=== PATIENT | female | born 1965 | race Caucasian/White ===

== ENCOUNTER 2020-03-24 10:24 | Emergency (ER) | payer BC, SELFPAY ==
[2020-03-24] VITALS (42 sets, daily range): BP systolic 113–151; BP diastolic 66–97; PULSE 58–88; RESP 13–22; TEMP 36.8–37; O2SAT 81–100
--- NOTE | 2020-03-24 11:02 | ED.GENADUL_ITS ---
Discharge Plan Disposition Patient Disposition: HOME Condition: Stable Discharge Details Chief Complaint: RespSymp Clinical Impression: Chronic dyspnea Primary Care Provider: Ruthie Anna ED Provider: Bernadine Michel Home Meds and New Rx's Prescriptions: New albuterol sulfate 90 mcg/actuation HFA aerosol inhaler 2 puff IH Q4H PRN (Reason: shortness of breath or wheezing) Qty: 8 RF: 0 No Action prednisone 5 mg Tablet 5 mg PO DAILY RF: 0 loratadine 10 mg Tablet 10 mg PO DAILY PRNRF: 0 valsartan-hydrochlorothiazide 320-25 mg Tablet 1 tab PO DAILY RF: 0 Discharge Instructions Instructions: Dyspnea (ED) Additional Instructions: Follow up with primary care provider in 3-5 days. Return to ED sooner if any worsening or concerns. Increase oral fluids. Insert Tylenol if any worsening chest pressure, shortness of breath, return to the ED. Could be a little bit of anxiety. Stand Alone Forms: PENDING COVID-19 TESTING Referrals: Ruthie Anna [Primary Care Provider] - Discharge Data Discharge Date/Time-TO BE ENTERED AT DEPARTURE: 03/24/20 16:11 Medical Decision Making 54-year-old female presents with chronic chest heaviness and shortness of breath which is been worse over the last month and today. She reports constant today. Associated with dry cough and dyspnea. States she feels like she has to cough in order to catch her breath. She does have a history of rheumatoid arthritis and takes prednisone 5 mg daily, she describes pain as heaviness. No radiation, no rash no seizure no weakness. She is alert and oriented x4. Initial work-up includes cardiac work-up and handheld albuterol inhaler, chest x-ray, CBC, CMP troponin magnesium. EXAM: XR PORTABLE CHEST AP CLINICAL HISTORY: Chest pressure shortness of breath. TECHNIQUE: 2D digital imaging was performed. COMPARISON: No exams were available for comparison FINDINGS: LUNGS: Clear. No pleural abnormality seen. HEART: Normal. MEDIASTINUM: Normal. OTHER FINDINGS: None. IMPRESSION: No acute pulmonary findings. Differential diagnosis includes but not limited to coronary artery disease, URI, pneumonia, seasonal allergies, anxiety. 1521: patient reevaluation, patient is alert oriented in no acute distress on monitor second troponin pending at this time. Patient is requesting to leave, but disposition is discharged home with albuterol inhaler. Strict return instructions given, verbalized understanding. 1415: Did obtain second troponin prior to patient discharge which was within normal limits patient discharged home, ambulatory prescription given for albuterol inhaler. Strict return instructions given, verbalized understanding. This text was generated using [employer] system, please disregard any oddities of phrase or misspellings. Medical Records Medical records reviewed: Yes I reviewed the patient's medical records. Lab Data Lab results reviewed: Yes I reviewed the patient's lab results. HPI General Mode of arrival: ambulatory . Date/Time Provider Initiated Documentation: 03/24/20 10:31 . Limitations to Documentation: no limitations . Information obtained by: patient . HPI Narrative: 54-year-old female presents with chronic chest heaviness and shortness of breath which is been worse over the last month and today. She reports constant today. Associated with dry cough and dyspnea. States she feels like she has to cough in order to catch her breath. She does have a history of rheumatoid arthritis and takes prednisone 5 mg daily, she describes pain as heaviness. No radiation, no rash no seizure no weakness. She is alert and oriented x4. Related Data Home Medications Medication Instructions Recorded Confirmed albuterol sulfate 2 puff IH Q4H PRN #8 gm 03/24/20 loratadine 10 mg PO DAILY PRN 03/24/20 03/24/20 prednisone 5 mg PO DAILY 03/24/20 03/24/20 valsartan-hydrochlorothiazide 1 tab PO DAILY 03/24/20 03/24/20 Previous Rx's Medication Instructions Recorded albuterol sulfate 2 puff IH Q4H PRN #8 gm 03/24/20 Allergies Allergy/AdvReac Type Severity Reaction Status Date / Time bee venom protein (honey bee) Allergy Severe Anaphylaxsi Unverified 03/24/20 10:56 s Sulfa (Sulfonamide Allergy Intermediate Hives Unverified 03/24/20 10:56 Antibiotics) General Stated Complaint: RespSymp REAL: 3 Review of Systems Narrative: Constitutional: Negative for weight loss, alert and oriented, well groomed, normal body habitus, appears comfortable. HEENT: Denies trauma, headaches, blurry vision, nasal discharge, sore throat, trouble swallowing. Chest: Denies positive chest heaviness palpitations, irregular rhythm, hypertension. Respiratory: Positive shortness of breath, dry cough, denies hemoptysis. GI: Denies abdominal pain, nausea, vomiting, diarrhea, constipation. : Denies dysuria, hematuria, flank pain, rectal bleeding. Neuro: Denies dizziness, blurry vision, weakness, syncope, headache or facial numbness. Hematologic: Denies easy bruising, intolerance to heat or cold, hair loss. Does have a history of rheumatoid arthritis All systems reviewed & are unremarkable except as noted in HPI and below [facility] Social History Smoking/Tobacco Use Status: Never Alcohol Intake: current Alcohol Intake frequency: holidays/special occasions only Drug use: Never Substance use type: does not use Do you feel safe at home: Yes Do you feel safe in your relationship?: Yes Exam Narrative Exam Narrative: Constitutional: Alert and oriented x3. Appears stated age. Normal body habitus. Head: Normocephalic, no trauma. Eyes: Pupils PERRLA, Red reflex noted, EOM's intact. Eyelids symmetrical without lesions, discharge, or swelling. ENT: Bilateral TM's WNL, External ear normal to inspection, no mastoid TTP, swelling, or erythema, Nasal turbinates WNL, no nasal discharge. Normal dentition, Posterior pharynx slightly erythemic, no exudate. Chest: RRR, Normal S1, S2, distal pulses intact. Resp: Lungs slightly diminished to auscultation bilaterally, no wheezes, rales, or rhonchi. Abdomen: Normal to inspection, soft, nontender to palpation, Musculoskeletal: Normal gait, 5/5 strength to all four extremities. Skin: No suspicious rashes or lesions. Capillary refill less than 2 sec. no lower extremity edema. Neurologic: Cranial nerves II-XII intact. Alert and oriented x 3. DTR's intact. Hematologic/Lymphatic: No ecchymosis, no lymphadenopathy. Course Vital Signs Vital signs: Vital Signs Temperature 37 C 03/24/20 10:30 Pulse 86 03/24/20 10:30 Respiratory Rate 18 03/24/20 10:30 Blood Pressure 135/97 H 03/24/20 10:30 Pulse Oximetry 98 03/24/20 10:30 Temperature 37 C 03/24/20 10:30 Temperature Source Temporal Artery Scan 03/24/20 10:30 Pulse 86 06/05/20 10:30 Respiratory Rate 18 03/24/20 10:30 Respiratory Effort 03/24/20 10:39 Respiratory Depth Normal 03/24/20 10:39 Blood Pressure 135/97 H 03/24/20 10:30 Blood Pressure Position Sitting 03/24/20 10:30 Pulse Oximetry 98 03/24/20 10:30 Oxygen Delivery Method Room Air 03/24/20 10:30 Oxygen Flow Rate 0 03/24/20 10:30 Pain Level 6 03/24/20 10:30
[2020-03-24 11:22] LABS: Abs Immature Grans 0.01 k/cumm (0.0-0.09); Absolute Basophil Count 0.04 k/cumm (0.0-0.2); Absolute Eosinophil Count 0.13 k/cumm (0.0-0.7); Absolute Lymphocyte Count 1.47 k/cumm (1.2-3.4); Absolute Neutrophil Count 4.45 k/cumm (1.2-6.7); Basophils % 0.6; Eosinophils % 1.9; HCT 42.5 % (36.0-46.0); HGB 14.1 g/dL (12.0-15.5); Immature Grans % 0.1 %; Lymphocytes % 21.6; Mean Corp. HGB Concentration 33.2 g/dL (32.0-36.0); Mean Corpuscular Hemoglobin 30.9 pg (27.0-33.0); Mean Platelet Volume 10.2 fL (8.0-11.0); Monocytes % 10.3; Neutrophils % 65.5; Platelet Count 329 x1000/uL (130-400); RBC 4.57 m/cumm (4.00-5.20); RBC Distribution Width 12.6 % (11.7-14.6)
[2020-03-24 11:32] LABS: ALT 30 U/L (14-59); AST 22 U/L (15-37); Albumin 3.8 g/dL (3.4-5.0); Alkaline Phosphatase 76 U/L (46-116); Anion Gap 8.5 mmol/L (3-11); BUN 14 mg/dL (7-18); Bilirubin, Total 0.5 mg/dL (0.2-1.0); CO2 25.5 mmol/L (21.0-32.0); CREATININE 0.87 mg/dL (0.55-1.02); Calcium 8.8 mg/dL (8.5-10.1); Chloride 103 mmol/L (98-107); Glucose 93 mg/dL (74-106); Potassium 3.6 mmol/L (3.5-5.1); Sodium 137 mmol/L (136-145); Total Protein 7.7 g/dL (6.4-8.2)
[2020-03-24 11:50] LABS: D-Dimer 451 ng/mlFEU (<500)
[2020-03-24 11:57] LABS: Magnesium 2.3 mg/dL (1.8-2.4); Troponin I < 0.05 ng/mL (<0.06)
[2020-03-24] MEDS: Albuterol HFA 8 GM 60 PUFF INH IH (12:29)
[2020-03-24] MEDS: Normal Saline 1,000 ML 1000 ML IV (12:32)
--- NOTE | 2020-03-24 12:45 | DI.RAD_ITS ---
EXAM: XR PORTABLE CHEST AP CLINICAL HISTORY: Chest pressure shortness of breath. TECHNIQUE: 2D digital imaging was performed. COMPARISON: No exams were available for comparison FINDINGS: LUNGS: Clear. No pleural abnormality seen. HEART: Normal. MEDIASTINUM: Normal. OTHER FINDINGS: None. IMPRESSION: No acute pulmonary findings. DATA REPOSITORY: RADIATION DOSE DELIVERED:
[2020-03-24 15:50] LABS: Troponin I < 0.05 ng/mL (<0.06)
[2020-03-25 21:43] LABS: COVID-19 RT-PCR UVMMC Result Negative (Negative)
== END 2020-03-24 16:11 | disposition home or self-care (01) ==
PROVIDERS: Emergency Provider Registered Nurse Emergency; PCP Nurse Practitioner
DX: R06.00 Dyspnea, unspecified (principal); R07.89 Other chest pain; G89.29 Other chronic pain
CPT/HCPCS: 36415; 80053; 93005; 96360; 99285; U0003; 71045; 83735; 84484; 85025; 85379; 93010; 99284

== ENCOUNTER 2022-08-06 14:10 | Outpatient (REF) | payer BC, SELFPAY ==
[2022-08-06 15:02] LABS: Abs Immature Grans 0.03 10^3/uL (0.0-0.06); Absolute Lymphocyte Count 1.89 10^3/uL (1.2-3.4); Absolute Neutrophil Count 6.23 10^3/uL (1.2-6.7); Basophils % 1.1; Eosinophils % 2.1; HCT 45.1 % (36.0-46.0); HGB 15.1 g/dL (11.2-15.7); Immature Grans % 0.3; Lymphocytes % 20.2; MCH 30.4 pg (27.0-33.0); MCHC 33.5 % (32.0-36.0); MCV 91 fL (80-95); MPV 10.2 fL (8.0-11.0); Monocytes % 9.6; Neutrophils % 66.7; Platelet Count 334 10^3/uL (130-400); RBC 4.97 10^6/uL (3.93-5.22); RDW 12.5 % (11.7-14.6); RDW-SD 41.2 fL; WBC 9.35 10^3/uL (4.4-10.8)
[2022-08-06 15:46] LABS: ALT 38 U/L (14-59); AST 30 U/L (15-37); Albumin 4.1 g/dL (3.4-5.0); Alkaline Phosphatase 91 U/L (46-116); Anion Gap 8.7 mmol/L (3-11); BUN 14 mg/dL (7-18); Bilirubin, Total 0.5 mg/dL (0.2-1.0); CO2 26.3 mmol/L (21.0-32.0); CREATININE 0.8 mg/dL (0.55-1.02); Calcium 9.5 mg/dL (8.5-10.1); Chloride 105 mmol/L (98-107); Estimated GFR 86.42 (mL/min/1.73m2); Glucose 92 mg/dL (74-106); Lipase 82 U/L (73-393); Potassium 3.7 mmol/L (3.5-5.1); Sodium 140 mmol/L (136-145)
== END 2022-08-06 14:11 | disposition home or self-care (01) ==
LOC: NCHCN 14:10
PROVIDERS: PCP Nurse Practitioner; Visit Provider Nurse Practitioner Family
DX: R10.31 Right lower quadrant pain (principal)
CPT/HCPCS: 80053; 83690; 85025

== ENCOUNTER 2023-09-04 14:29 | Outpatient (REF) | payer BC, SELFPAY ==
--- NOTE | 2023-09-04 14:30 | SKI_PTH ---
PATIENT: Lorena Goodrich LOC: [facility]#:[id number] AGE/SX: 57/F ROOM: RE09/04/[address]: Keila Kathleen : 1965 BED: DIS: 09/04/2023 SPEC #: [id number] RECD: 09/04/23 17:35 STATUS: [facility] REQ #: [id number] MARYELLEN: 09/04/23 14:[address]: Keila Kathleen DEPT: Surgical Specimen RECD BY: Sulma Galvan ENTERED: 09/04/23 17:36 SP TYPE: MAYUR RUDD DR: Randi Posada Tissues: 1 - SKIN BIOPSY(SHAVE/PUNCH) Procedures: SKIN LEVEL 4 Comments: [id number]
== END 2023-09-04 14:30 | disposition home or self-care (01) ==
LOC: LBN 14:29
PROVIDERS: PCP Nurse Practitioner Family; Visit Provider Surgery
DX: B07.8 Other viral warts (principal); L98.8 Other specified disorders of the skin and subcutaneous tissue
CPT/HCPCS: 88305